=== PATIENT | male | born 1975 | race Hispanic/Latino ===

== ENCOUNTER 2024-10-23 10:32 | Emergency (ER) | payer OTHER ==
[~2024-10-23] VITALS: Ht 170.2 cm; Wt 96.3 kg
[2024-10-23 10:35] VITALS: PULSE 86; RESP 20; TEMP 99; O2SAT 97
[2024-10-23] MEDS: ACETAMINOPHEN 325 MG TAB PO ONE (10:54)
[2024-10-23] MEDS ORDERED: BENZONATATE200 MG PO (11:24)
== END 2024-10-23 11:30 | disposition home or self-care (01) ==
LOC: FSED 10:44
DX: R50.9 Fever, unspecified (principal); J06.9 Acute upper respiratory infection, unspecified; R05.9 Cough, unspecified; Z11.52 Encounter for screening for COVID-19
CPT/HCPCS: 0223U; 83518; 87400; 99284